=== PATIENT | female | born 1945 | race Two or more races ===

== ENCOUNTER 2019-10-17 08:24 | Day surgery (SDC) | payer OTHER | END 2019-10-17 15:10 | disposition home or self-care (01) | LOC: AMB-ENDOS 08:24 | DX: D12.4 Benign neoplasm of descending colon (principal) ==

== ENCOUNTER 2020-12-24 06:53 | Day surgery (SDC) | payer OTHER | END 2020-12-24 10:40 | disposition home or self-care (01) | LOC: AMB-ENDOS 06:53 | PROVIDERS: ATTEND Surgery | DX: K62.89 Other specified diseases of anus and rectum (principal); K64.0 First degree hemorrhoids; Z12.11 Encounter for screening for malignant neoplasm of colon ==